=== PATIENT | female | born 1975 | race Caucasian/White ===

== ENCOUNTER → 2016-09-12 | Day surgery (SDC) | payer OTHER ==
--- NOTE | 2016-09-08 10:16 | MH ---
cc: REYNABRIAN Melissa VALDES DATE OF ADMISSION 09/12/2016 DATE OF 1975 HISTORY This female has a history of markedly constricted maxilla and mandible. Her chief complaint is difficulty with sleeping and breathing and eating. PAST MEDICAL HISTORY The past medical history reveals she had a: 1. Laparotomy for a cyst removal six years ago 2. Tonsillectomy age 24 3. She had a uterine ablation for bleeding. All without difficulty. PAST MEDICAL HISTORY Reveals she has: 1. Hypothyroidism 2. Sleep difficulty 3. She also has a history of seizures on two occasions. 4. She has normal growth and development. 5. She had scarlet fever at age 12. MEDICATIONS Her current medications are: 1. Synthroid 2. Klonopin FAMILY HISTORY History of Alzheimer's and lung cancer. 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 She does not use tobacco. She only uses alcohol occasionally. She has a great deal of difficulty with sleep. REVIEW OF SYSTEMS She has no headaches or dizziness. She did have an injury in 2011. She subsequently had two seizures afterwards the latest being in 2012. EYES: Has no history of double vision, tearing or blind spots. NOSE: She has marked obstruction with a deviated septum and enlarged turbinates. She does not have any discharge or bleeding history. MOUTH: Markedly constricted maxilla of the nasal maxillary complex with compromised airway. THROAT: No history of hoarseness, soreness, thyroid disease, lymph nodes or local general glandular enlargement. RESPIRATORY: No history of tuberculosis, cough, asthma, COPD. She reports shortness of breath when lying flat and she has questionable history of sleep apnea. CARDIOVASCULAR: No history of precordial pain, hypertension, hypotension, heart murmurs, shortness of breath on exertion, edema, phlebitis, rheumatic fever or previous heart surgery. GASTROINTESTINAL: No history of gallbladder disease, peptic ulcer disease. GENITOURINARY: No history of urinary tract infections, kidney disease or venereal disease. MUSCULOSKELETAL: She has pain and limitation of movement in her left knee. No other muscle weakness. ENDOCRINE: Has a history of thyroid disease, hypothyroidism, no history of diabetes or growth abnormality. HEMATOLOGIC: No history of anemia, bleeding tendencies, Rh incompatibility or previous transfusions. NEUROLOGIC: She has a history of seizures, the latest being in 2012. MENSTRUAL: She reports she is not at this time. She had an ablation to help control menstrual bleeding. PHYSICAL EXAM Physical examination reveals an alert, oriented female. VITAL SIGNS: Her pulse is 78 and regular, blood pressure 128/76, O2 sat on room air is 99%. She is 5 foot, 6 inches, she weighs 162. HEAD, EYES, EARS, NOSE, AND THROAT: Head is normocephalic. There are no masses noted. Eyes: EOMs intact. PERRLA. Ears: TMs intact. Nose: She has a markedly deviated septum to the left with enlarged turbinates on the left and a markedly constricted nasomaxillary complex. Her mandible is also constricted with compensated lingually inclined dentition. Her throat is clear. NECK: She has no thyroid enlargement. CHEST: Clear to auscultation. HEART: Regular sinus rhythm without thrill, murmur or gallop. Peripheral pulses full and equal throughout. ABDOMEN: Soft, there are no masses or organomegaly present. NEUROLOGIC: Cranial nerves II-XII intact. Deep tendon reflexes symmetric and physiologic. PLAN The patient is admitted at this time for a rapid surgical expansion of her maxilla. She has been informed of the treatment planning. She accepts the treatment plan. KEISHA Prater /9:54 AM /10:05 AM
[~2016-09-12] VITALS: Ht 167.6 cm; Wt 75.5 kg
[~2016-09-12] MED LIST: *morphine SULFATE 8 MG/ML PERIprocedure ONLY ONE; ACETAMINOPHEN 1000 MG/100 ML VIAL IV ONE; APREPITANT 40 MG CAP ONE; BACITRACIN TOP OINT 15 GM TUBE ONE; CHLORHEXIDINE GLUCONATE 2 % 1 PACK (2 CLOTHS) TOPICAL PRN; CLON2TAB PO; DO NOT ADM ANY ANTICOAGULANT DRUGS PRN; FAMOTIDINE 20 MG/2 ML VIAL ONE; INSULIN HUMAN REGULAR 1,000 UNITS/10 ML VIAL SQ PRN; KETOROLAC TROMETHAMINE 60 MG/2 ML (IM) VIAL IM ONE; LACTATED RINGER'S 1000 ML IV PRN; LIDOCAINE 1%/EPINEPHrine 1:100,000 SOLN 20 ML VIAL ONE; METOPROLOL TARTRATE 25 MG TAB PO PRN; MICROFIBRILLAR COLLAGEN HEMOSTAT 1 GM PKT ONE; MIDAZOLAM HCL 2 MG/2 ML VIAL ONE; NEOSTIGMINE 3 MG/3 ML SYR IV ONE; ONDANSETRON HCL 4 MG/2 ML VIAL IV PUSH ONE; POVIDONE IODINE 5% (ANTISEPSIS KIT) 4 APPLICATIONS EACH NARE PRN; PROPOFOL 200 MG/20 ML AMP IV ONE; SCOPOLAMINE 1.5 MG PATCH ONE; SODIUM CHLORID 0.9% 500 ML IV PRN; SYNT88TA PO; THROMBIN (TOPICAL) 5,000 UNIT VIAL ONE; ceFAZolin 1,000 MG/NS 100 ML IV SCH; fentaNYL CITRATE 250 MCG/5 ML AMP ONE
[2016-09-12 11:28] VITALS: BP 105/68; PULSE 55; RESP 18; TEMP 97.7; O2SAT 99
[2016-09-12 16:00] VITALS: BP 122/74; PULSE 48; RESP 18; TEMP 98.2; O2SAT 96
--- NOTE | 2016-09-14 09:20 | MP ---
cc: BRIAN ORELLANA DDS DATE OF SURGERY 09/12/2016 PREOPERATIVE DIAGNOSIS Constricted maxilla OPERATIVE PROCEDURE Performed rapid surgical expansion of the maxilla. OPERATIVE PROCEDURE The patient was brought to the operating room, placed on the operating table in the supine position. The patient was anesthetized and intubated via the nasal route. The patient was prepped and draped in usual manner for an intraoral procedure. 6 cc of 2% Xylocaine with 1:100,000 epinephrine was infiltrated in the buccal vestibule of the maxilla and on the palatal side of the maxilla. Once this was completed, a full-thickness mucoperiosteal incision was made from first molar to first molar. This incision was made 5 mm superior to the mucogingival junction. The flap was reflected. A short incision was made between teeth #8 and 9. Once this was completed, a reciprocating saw was used to section the lateral wall of the maxilla bilaterally. The pterygoid chisel was used to separate the pterygoid plates. A cortical bone cut was made with a 701 bur between 8 and 9 and then a chisel was used to finish the cut. Once this was completed, the mail carriers supervisor was activated 10 times. There was a noticeable gap between teeth #8 and 9 and obvious movement of the lateral gonzales of the maxilla. Once this was completed, PRP was injected in all surgical sites. The incisions were closed with interrupted and running 4-0 chromic sutures. The throat pack was removed and the patient was taken to recovery in good condition. KEISHA Prater /2:57 PM /9:15 AM
== END | disposition home or self-care (01) ==
LOC: HSDC 10:37
PROVIDERS: ATTEND Dentist Oral and Maxillofacial Surgery
DX: M26.02 Maxillary hypoplasia (principal); E03.9 Hypothyroidism, unspecified
CPT/HCPCS: 00192; 21142; J0131; J0690; J1885; J2250; J2270; J2405; J2710; J3010; J7120; J8501

== ENCOUNTER 2017-10-23 08:12 | Inpatient (IN) ==
--- NOTE | 2017-10-11 23:06 | MH ---
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 She is admitted at this time for correction of the above-mentioned problems. PAST MEDICAL HISTORY: Reveals that she had a laparotomy removed 6 years ago for a cyst. She had a tonsillectomy at age 24. She had a uterine ablation for bleeding, all without difficulty. She had a rapid surgical expansion of her maxilla 09/12/2016 at [facility]. Other past medical history reveals that she has hypothyroidism, sleep difficulty, she has had a history of seizures on 2 occasions in the past, she has had normal growth and development and she had scarlet fever at age 12. CURRENT MEDICATIONS: 1. Synthroid. 2. Klonopin. FAMILY HISTORY: She has a family history of Alzheimer's and lung cancer. 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 She does not use tobacco. She only uses alcohol occasionally. She reports she has a great deal of difficulty with sleep. REVIEW OF SYSTEMS: HEAD: No history of headaches or dizziness. She did have an injury in 2011. She has had subsequent seizures on 2 occasions, the latest being in 2012. EYES: No history of double vision, tearing or blind spots. NOSE: Prior to the previous maxillary surgery, she had a marked deviation of her septum, which has now been corrected. She does not have any history of bleeding or discharge from the nose. MOUTH: She has the asymmetry as noted in above. THROAT: No history of hoarseness, soreness thyroid disease or general glandular enlargement. RESPIRATORY: No history of tuberculosis, cough, asthma, COPD. She reports she does have shortness of breath when lying flat and she has a questionable history of sleep apnea. CARDIOVASCULAR: No history of hypertension, hypotension, chest pain, heart murmurs, shortness of breath on exertion when lying flat. She has no history of edema, phlebitis, rheumatic fever or previous heart surgery. GASTROINTESTINAL: No history of gallbladder disease or peptic ulcer disease. GENITOURINARY: No history of urinary tract infections, kidney disease or Venereal disease. MUSCULOSKELETAL: She has pain and limitation of movement in her left knee. No other muscle weakness. ENDOCRINE: She has a history of thyroid disease, hypothyroidism. No history of diabetes or growth abnormality. HEMATOLOGIC: No history of anemia, bleeding tendencies, RH incompatibility or previous transfusions. She has had no difficulty with bleeding on previous surgeries. NEUROLOGIC: Has a history of seizures, the latest being in 2012. She reports that she is not at this time. She had an ablation to help control menstrual bleeding. PHYSICAL EXAMINATION: Reveals an alert and oriented female. VITAL SIGNS: Her blood pressure is 115/66, her pulse is 59 and regular, O2 saturation on room air is 98%. Her weight is 168 pounds. She is 5 feet 6 inches. HEENT: Head is normocephalic. There are no masses noted. Eyes, EOMs intact. PERRLA. TMs intact. The deviation to her septum has been corrected. She does have enlarged turbinates on the left. Her mandible is constricted and is asymmetric being longer on the left than the right. Her throat is clear. NECK: There is no thyroid enlargement. CHEST: Clear to auscultation. HEART: Regular sinus rhythm without thrill, murmur or gallop. EXTREMITIES: Peripheral pulses full and equal. ABDOMEN: Soft. There are no masses or organomegaly present. NEUROLOGIC: Cranial nerves 2-12 intact. Deep tendon reflexes are symmetric and physiologic. The patient has been informed of plan for a [place] I maxillary osteotomy and an intraoral vertical oblique osteotomy of the mandible for correction of her asymmetry. She accepts treatment plan. KEISHA Prater/HAMMAD , 07:22 AM , 07:45 AM
[~2017-10-23 08:12] MED LIST changes: -*morphine SULFATE 8 MG/ML PERIprocedure ONLY ONE; -ACETAMINOPHEN 1000 MG/100 ML VIAL IV ONE; -APREPITANT 40 MG CAP ONE; -BACITRACIN TOP OINT 15 GM TUBE ONE; -CHLORHEXIDINE GLUCONATE 2 % 1 PACK (2 CLOTHS) TOPICAL PRN; -CLON2TAB PO; -DO NOT ADM ANY ANTICOAGULANT DRUGS PRN; +Dexmedetomidine Inj 200 MCG/2 ML Vial ONE; -FAMOTIDINE 20 MG/2 ML VIAL ONE; -INSULIN HUMAN REGULAR 1,000 UNITS/10 ML VIAL SQ PRN; -KETOROLAC TROMETHAMINE 60 MG/2 ML (IM) VIAL IM ONE; -LACTATED RINGER'S 1000 ML IV PRN; -LIDOCAINE 1%/EPINEPHrine 1:100,000 SOLN 20 ML VIAL ONE; -METOPROLOL TARTRATE 25 MG TAB PO PRN; -MICROFIBRILLAR COLLAGEN HEMOSTAT 1 GM PKT ONE; -MIDAZOLAM HCL 2 MG/2 ML VIAL ONE; -NEOSTIGMINE 3 MG/3 ML SYR IV ONE; -ONDANSETRON HCL 4 MG/2 ML VIAL IV PUSH ONE; -POVIDONE IODINE 5% (ANTISEPSIS KIT) 4 APPLICATIONS EACH NARE PRN; -PROPOFOL 200 MG/20 ML AMP IV ONE; -SCOPOLAMINE 1.5 MG PATCH ONE; -SODIUM CHLORID 0.9% 500 ML IV PRN; -SYNT88TA PO; +Sugammadex Inj 200 MG/2 ML Vial IV.PUSH ONE; -THROMBIN (TOPICAL) 5,000 UNIT VIAL ONE; -ceFAZolin 1,000 MG/NS 100 ML IV SCH; -fentaNYL CITRATE 250 MCG/5 ML AMP ONE
[2017-10-23] MEDS ORDERED: ceFAZolin 2 GM Premix Inj 2 GM/100 ML BAG IV.SIG ONE (08:53)
[2017-10-23] MEDS ORDERED: Metoprolol Tartrate 25 MG Tablet PO SCH (09:00)
[2017-10-23] MEDS ORDERED: ceFAZolin Inj 2,000 MG in Sodium Chlor 0.9% Inj 100 ML IV.SIG SCH (09:00)
[2017-10-23] MEDS ORDERED: Sodium Chlor 0.9% Inj 500 ML IV.SIG SCH (09:00)
[2017-10-23] MEDS ORDERED: Chlorhexidine Gluconate 2% 1 Pack (2 Cloths) TOPICAL SCH (09:00)
[2017-10-23] MEDS ORDERED: fentaNYL Citrate Inj 250 MCG/5 ML Ampul ONE (09:30)
[2017-10-23 09:48] LABS: Baso % (Auto) 0.1 % (0.0-2.0); Eos # (Auto) 0.3 th/mm3 (0.0-0.4); Eos % (Auto) 2.2 % (0.0-4.0); Hematocrit 38.5 % (35.0-46.0); Lymph # (Auto) 1.2 th/mm3 (1.0-4.8); Lymph % (Auto) 9.8 % (9.0-44.0); Mean Corpuscular HGB Conc 33.9 % (32.0-36.0); Mean Corpuscular Hemoglobin 32.7 pg (27.0-34.0); Mean Corpuscular Volume 96.7 fL (80.0-100.0); Mean Platelet Volume 9.6 fL (7.0-11.0); Mono # (Auto) 0.7 th/mm3 (0.0-0.9); Mono % (Auto) 6.3 % (0.0-8.0); Neut # (Auto) 9.6 th/mm3 (1.8-7.7); Neut % (Auto) 81.6 % (16.0-70.0); Platelet Count 200 th/mm3 (150-450); Red Blood Count 3.98 mil/mm3 (4.00-5.30); Red Cell Distribution Width 12.5 % (11.6-17.2); White Blood Count 11.8 th/mm3 (4.0-11.0)
[2017-10-23] MEDS ORDERED: Lidocaine 1%/Epinephrine 1:100,000 Inj 20 ML Vial ONE (10:35)
[2017-10-23] MEDS ORDERED: Thrombin Topical Soln 5,000 UNIT Vial TOPICAL ONE (10:35)
[2017-10-23] MEDS ORDERED: Chlorhexidine Gluconate 0.12% Liq 15 ML UDC ONE ×2 (10:52→10:59)
[2017-10-23] MEDS ORDERED: Microfibrillar Collagen Hemostat 1 GM Packet TOPICAL ONE (10:59)
[2017-10-23] MEDS ORDERED: Sodium Chlor 0.9% Inj 250 ML IV.SIG ONE (12:00)
[2017-10-23] MEDS ORDERED: Sodium Chlor 0.9% Inj 500 ML IV.SIG ONE (12:00)
[2017-10-23] MEDS ORDERED: Metoprolol Inj 5 MG/5 ML Vial IV.PUSH ONE (12:00)
[2017-10-23] MEDS ORDERED: Lidocaine PF 1% Inj 5 ML Syringe INFILTRATN ONE (12:00)
[2017-10-23] MEDS ORDERED: fentaNYL Citrate Inj 100 MCG/2 ML Ampul ONE ×2 (12:29)
[2017-10-23] MEDS ORDERED: Propofol Inj 500 MG/50 ML Vial ONE (12:30)
[2017-10-23 13:46] LABS: Hematocrit 33.3 % (35.0-46.0); Hemoglobin 11.3 gm/dL (11.6-15.3)
[2017-10-23 13:48] LABS: ABG Base Excess -2.1 mmol/L (-2-2); ABG PCO2 37 mmHg (38-42); ABG PO2 253 mmHG (61-120)
[2017-10-23] MEDS ORDERED: Balanced Salt Opth Irrigation 15 APPLIC/15 ML Bottle ONE (14:55)
--- NOTE | 2017-10-23 15:20 | MP ---
cc: Roberto No DDS DATE OF OPERATION: 10/23/2017 PREOPERATIVE DIAGNOSIS: Asymmetry of the maxillofacial region. OPERATIVE PROCEDURE: Le [place] I maxillary osteotomy, vertical intraoral oblique osteotomy of the mandible, nasal maxillary osteotomy, PRP. OPERATIVE PROCEDURE: The patient was brought to the operating room, placed on the operating table in supine position. The patient was anesthetized intravenously and intubated with ease via the nasal route. Following this, the patient was prepped and draped in the usual manner for an intraoral procedure. A Latif catheter and NG tube was placed. The maxilla was anesthetized with 1% lidocaine with 1:100,000 epinephrine. Once this was completed, a full-thickness mucoperiosteal incision was made in the maxilla from first molar to first molar, 5 mm superior to the mucogingival junction. The mucoperiosteal flap was reflected. An osteotomy site was outlined and the prescribed amount of bone was removed from the lateral wall of the left maxilla. An identical procedure was carried out on the right hand side. The amount of bone was greater on the left than the right by approximately 3 mm. Once this was completed, the medial wall of the maxilla was resected with chisels. The nasal zygomaticomaxillary complex was with a nasal maxillary osteotome. The pterygoid plates were with a pterygoid chisel. The patient's maxilla was then down-fractured. All interferences were removed. The descending palatine artery was ligated on both sides with a Hemoclip. Attention was directed to the nasal mucosa. A full-thickness mucoperiosteal incision was made over the nasal mucosa over the nasal septal cartilage. The flap was reflected. Approximately 10 mm of nasal septal cartilage was removed. The nasal mucosa was sutured with running 3- chromic sutures. Once this was completed, the patient was placed in a prefabricated interim splint; it was noted to be in the correct position. The maxilla then was secured with four 4-hole KLS 2.0 plates. Once this was completed, attention was directed to the mandible. Once again Xylocaine 1% with 1:100,000 epinephrine was infiltrated in the area of the ramus of the mandible bilaterally. A full-thickness mucoperiosteal incision was made with an electrical cutting knife in the area of the ramus lateral to the mandible. The flap was reflected. Hunter retractors were placed in the sigmoid notch and at the inferior border at the angle. Once this was completed, an oscillating saw was used to section the mandible from the sigmoid notch down to the angle of the mandible. This was completed, bilaterally. Once this was completed, any muscle attached to the fragment was removed with a periosteal elevator and the patient was then placed a prefabricated final splint. Once this was completed, a nasal cinch was carried out with 3-0 Vicryl suture through a hole placed in the anterior nasal spine area. Once the nasal cinch was completed, a V-Y closure was carried out in the anterior portion of the horizontal incision and then a running horizontal mattress suture was carried out with 4-0 chromic sutures. Attention was directed to the mandible. The mandibular incision was closed with a running 4-0 chromic suture bilaterally. PRP was placed in a surgical area prior to all of the closures. The throat pack was removed and the patient was taken to the recovery room in good condition. KEISHA Prater , 02:48 PM , 02:58 PM
[2017-10-23] MEDS ORDERED: Morphine Inj 4 MG/ML Vial ONE (15:35)
[2017-10-23] MEDS ORDERED: Post-op Orders (for Pharmacy) OTHER ONE (15:38)
[2017-10-23] MEDS ORDERED: Ketorolac Inj 30 MG/ML (IVP) Vial IV.PUSH PRN (15:38)
[2017-10-23] MEDS ORDERED: Naloxone Inj 0.4 MG/ML Vial IV.PUSH PRN (15:38)
[2017-10-23] MEDS ORDERED: KCL 20 mEq/D5W/NaCl 0.45% Inj 1,000 ML ONE (16:03)
[2017-10-23] MEDS ORDERED: Pantoprazole Inj 40 MG Vial IV.PUSH SCH (18:00)
[2017-10-23] MEDS ORDERED: PSEUDOEPHEDRINE HCL PO SCH (18:00)
[2017-10-23] MEDS: MethylPREDNISolone Sod Succinate Inj 125 MG/2 ML Vial IV.PUSH SCH (18:44)
[2017-10-23] MEDS: KCL 20 mEq/D5W/NaCl 0.45% Inj 1,000 ML IV.CONT SCH (18:45)
[2017-10-23] MEDS: Acetaminophen-HYDROcodone 325/7.5 Liq 15 ML UDC NG/OG PRN (19:35)
[2017-10-23] MEDS: ceFAZolin Inj 1,000 MG in Sodium Chlor 0.9% Inj 100 ML IV.SIG SCH (21:16)
[2017-10-23 23:21] LABS: Bilirubin,Urine Negative (Negative); Clarity,Urine Clear (Clear); Color,Urine Yellow (Yellw/Straw); Glucose,Urine (UA) 500 or Greater mg/dL (Negative); Leukocyte Esterase,Urine Negative (Negative); Nitrite,Urine Negative (Negative); Specific Gravity,Urine 1.018 (1.002-1.035); Squamous Epithelial Cell,Urine <1 /hpf (0-5)
[2017-10-24] MEDS: MethylPREDNISolone Sod Succinate Inj 125 MG/2 ML Vial IV.PUSH SCH ×5 (01:12→14:46)
[2017-10-24] MEDS: Acetaminophen-HYDROcodone 325/7.5 Liq 15 ML UDC NG/OG PRN ×3 (01:13→19:43)
[2017-10-24] MEDS: ceFAZolin Inj 1,000 MG in Sodium Chlor 0.9% Inj 100 ML IV.SIG SCH ×3 (02:50→17:36)
[2017-10-24 05:08] LABS: Baso % (Auto) 0.1 % (0.0-2.0); Hematocrit 34.7 % (35.0-46.0); Hemoglobin 11.5 gm/dL (11.6-15.3); Lymph # (Auto) 0.5 th/mm3 (1.0-4.8); Lymph % (Auto) 2.6 % (9.0-44.0); Mean Corpuscular Hemoglobin 32.7 pg (27.0-34.0); Mean Corpuscular Volume 99.2 fL (80.0-100.0); Mean Platelet Volume 9.9 fL (7.0-11.0); Mono # (Auto) 0.4 th/mm3 (0.0-0.9); Mono % (Auto) 2.1 % (0.0-8.0); Neut # (Auto) 17.8 th/mm3 (1.8-7.7); Neut % (Auto) 95.2 % (16.0-70.0); Platelet Count 169 th/mm3 (150-450); Red Cell Distribution Width 12.4 % (11.6-17.2); White Blood Count 18.7 th/mm3 (4.0-11.0)
[2017-10-24 05:34] LABS: Calcium 8.4 mg/dL (8.5-10.1); Carbon Dioxide 24.1 meq/L (21.0-32.0); Potassium 3.9 meq/L (3.5-5.1)
[2017-10-24] MEDS ORDERED: Ibuprofen 600 MG Tablet PO PRN (06:24)
[2017-10-24] MEDS: Levothyroxine 88 MCG Tablet PO SCH (06:55)
[2017-10-24] MEDS: KCL 20 mEq/D5W/NaCl 0.45% Inj 1,000 ML IV.CONT SCH (06:55)
--- NOTE | 2017-10-24 08:08 | P.PN ---
Subjective Interval history: 42 y/o F with a history of hypothyroidism now post-op s/p LeFort 1 osteotomy and IVRO with MMF on 10/23/17. Did well overnight, minimal PO intake. Pain well controlled with PO pain medications. Denies any nausea. Reports some decreased sensation in her upper face, reports feeling in her lower lip. Physical Exam Vital signs: Vital Signs 10/23/17 09:15 10/23/17 15:20 10/23/17 15:45 Temperature 98.4 F 98.1 F Pulse Rate 66 76 79 Respiratory Rate 16 18 18 Blood Pressure 112/66 108/58 L 111/64 Pulse Oximetry 99 94 L 96 10/23/17 16:00 10/23/17 16:15 10/23/17 16:30 Temperature Pulse Rate 71 67 72 Respiratory Rate 18 18 18 Blood Pressure 106/60 103/59 L 109/64 Pulse Oximetry 95 95 95 10/23/17 17:40 10/23/17 17:54 10/23/17 20:00 Temperature 97.9 F 99.3 F 100.0 F H Pulse Rate 77 77 88 Respiratory Rate 18 14 26 H Blood Pressure 101/62 125/67 108/66 Pulse Oximetry 96 97 10/23/17 21:17 10/24/17 00:00 10/24/17 02:49 Temperature 99.8 F H Pulse Rate 77 Respiratory Rate 21 16 22 Blood Pressure 99/56 L Pulse Oximetry 98 10/24/17 04:00 Temperature 98.6 F Pulse Rate 69 Respiratory Rate 22 Blood Pressure 99/56 L Pulse Oximetry 96 Intake & Output 10/23/17 10/24/17 10/24/17 18:59 06:59 18:59 Intake Total 4220 / 4220 4100 / 4100 Output Total 1175 / 1175 675 / 675 Balance 3045 / 3045 3425 / 3425 Weight 77 kg 77 kg Intake: IV 1220 / 1220 1100 / 1100 D5W/1/2NS + KCL 20 mEq Inj 1, 1000 / 1000 000 ML @ 40 mls/hr IV.CONT . Q24H [facility] Rx#:[id number] LR 1000 mL Inj 1,000 ML @ 30 1000 / 1000 mls/hr IV.SIG .Q24H [facility] Rx#: [id number] Ancef 2 GM Premix Inj 2 gm In 100 / 100 100 ml @ 0 mls/hr IV.SIG .[facility] Rx#:[id number] Ancef Inj 1,000 MG In NS Inj 100 / 100 100 ML @ 200 mls/hr IV.SIG Q8H [facility] Rx#:[id number] Ancef Inj 2,000 MG In NS Inj 120 / 120 100 ML @ 240 mls/hr IV.SIG [employer] [facility] Rx#:[id number] Anesthesia Amount 3000 / 3000 3000 / 3000 Output: Estimated Blood Loss 400 / 400 400 / 400 Urine Amount (Catheter) 775 / 775 275 / 275 Indwelling Urethral Catheter 775 / 775 275 / 275 Other: Weight On Admission 76.9 kg Narrative: General: Appropriate, comfortable and in no apparent distress. Neurological: Diminished sensation in CNV2 region bilaterally. CNV3 intact bilaterally. HEENT: Head/Face: Normocephalic. Moderate facial swelling bilaterally in the mandibular and malar regions without tenderness to palpation. Edema of the upper and lower lips. NG tube in place. Eyes/Orbits: PERRL. EOMI Oral Cavity/Oropharynx: Oral incisions clean and hemostatic. Sutures intact. Gingiva pink and well perfused. Moist mucous membranes. MMF and splint in place. Cardiovascular: Regular rate Pulmonary: Normal work of breathing on RA. Abdomen: Soft, non-tender. Espinoza catheter in place. Extremities: Warm, well perfused. - Urinary Catheter Management Indwelling Urethral Catheter Cath placed during this visit: yes Reason for continuing: Hourly intake/output Insertion date: 10/23/17 Insertion time: 10:28 Results - Labs CBC & Chem 7: 10/24/17 04:38 10/24/17 04:38 Laboratory Results - last 24 hr 10/23/17 10/23/17 10/23/17 09:10 09:10 13:30 WBC 11.8 H RBC 3.98 L Hgb 13.0 11.3 L Hct 38.5 33.3 L MCV 96.7 MCH 32.7 MCHC 33.9 RDW 12.5 Plt Count 200 MPV 9.6 Neut % (Auto) 81.6 H Lymph % (Auto) 9.8 Vilas % (Auto) 6.3 Eos % (Auto) 2.2 Baso % (Auto) 0.1 Neut # (Auto) 9.6 H Lymph # (Auto) 1.2 Vilas # (Auto) 0.7 Eos # (Auto) 0.3 Baso # (Auto) 0.0 WBC Differential . Differential Comment Auto diff final Puncture Site Patient Temperature O2 Saturation ABG pH ABG pCO2 ABG pO2 ABG HCO3 ABG O2 Content ABG Base Excess ABG Methemoglobin Dario Test Hemoglobin Carboxyhemoglobin O2 Delivery Device Inspired O2 Critical Value Sodium Potassium Chloride Carbon Dioxide Anion Gap BUN Creatinine Estimated GFR Random Glucose Calcium Urine Color Urine Clarity Urine pH Ur Specific Pandora Urine Protein Urine Glucose (UA) Urine Ketones Urine Occult Blood Urine Nitrate Urine Bilirubin Urine Urobilinogen Ur Leukocyte Esterase Urine RBC Urine WBC Ur Squamous Epith Cells Blood Type O Positive Blood Type Recheck Not needed Antibody Screen Negative 10/23/17 10/23/17 10/24/17 13:30 22:20 04:38 WBC 18.7 H D RBC 3.50 L Hgb 11.5 L Hct 34.7 L MCV 99.2 MCH 32.7 MCHC 33.0 RDW 12.4 Plt Count 169 MPV 9.9 Neut % (Auto) 95.2 H Lymph % (Auto) 2.6 L Vilas % (Auto) 2.1 Eos % (Auto) 0.0 Baso % (Auto) 0.1 Neut # (Auto) 17.8 H Lymph # (Auto) 0.5 L Vilas # (Auto) 0.4 Eos # (Auto) 0.0 Baso # (Auto) 0.0 WBC Differential . Differential Comment Auto diff final Puncture Site Drawn in or Patient Temperature 98.6 O2 Saturation 96 ABG pH 7.40 ABG pCO2 37 L ABG pO2 253 H ABG HCO3 22 ABG O2 Content 15.4 ABG Base Excess -2.1 L ABG Methemoglobin 2.0 Adrio Test Present Hemoglobin 11.0 L Carboxyhemoglobin 1.0 O2 Delivery Device Or Inspired O2 57 Critical Value No Sodium Potassium Chloride Carbon Dioxide Anion Gap BUN Creatinine Estimated GFR Random Glucose Calcium Urine Color Yellow Urine Clarity Clear Urine pH 6.0 Ur Specific Pandora 1.018 Urine Protein Negative Urine Glucose (UA) 500 or greater Urine Ketones Negative Urine Occult Blood Negative Urine Nitrate Negative Urine Bilirubin Negative Urine Urobilinogen Less than 2 Ur Leukocyte Esterase Negative Urine RBC Less than 1 Urine WBC 4 Ur Squamous Epith Cells <1 Blood Type Blood Type Recheck Antibody Screen 10/24/17 04:38 WBC RBC Hgb Hct MCV MCH MCHC RDW Plt Count MPV Neut % (Auto) Lymph % (Auto) Vilas % (Auto) Eos % (Auto) Baso % (Auto) Neut # (Auto) Lymph # (Auto) Vilas # (Auto) Eos # (Auto) Baso # (Auto) WBC Differential Differential Comment Puncture Site Patient Temperature O2 Saturation ABG pH ABG pCO2 ABG pO2 ABG HCO3 ABG O2 Content ABG Base Excess ABG Methemoglobin Dario Test Hemoglobin Carboxyhemoglobin O2 Delivery Device Inspired O2 Critical Value Sodium 140 Potassium 3.9 Chloride 106 Carbon Dioxide 24.1 Anion Gap 10 BUN 8 Creatinine 0.89 Estimated GFR 69 L Random Glucose 183 H Calcium 8.4 L Urine Color Urine Clarity Urine pH Ur Specific Pandora Urine Protein Urine Glucose (UA) Urine Ketones Urine Occult Blood Urine Nitrate Urine Bilirubin Urine Urobilinogen Ur Leukocyte Esterase Urine RBC Urine WBC Ur Squamous Epith Cells Blood Type Blood Type Recheck Antibody Screen Assessment and Plan - Plan 42 y/o F with a history of hypothyroidism post-op s/p LeFort 1 osteotomy and IVRO with MMF. Doing well post-operatively but minimal PO intake Neuro: - Pain control with Hycet and ibuprofen - Benedryl prn itching Maxillofacial: - HOB elevated - Ice to face for 24 hours - Solumedrol for 24 hours - Afrin, Sudafed - Wire cutters to bedside CV/Resp: Stable FEN/GI: - Decrease IVF and mindi - Encourage PO intake - Full liquid diet /Renal: - D/C espinoza catheter - Strict I/Os Endocrine: - Restarted home Synthroid Heme/ID: - Ancef, convert to PO on discharge Prophylaxis: - SCDs - Encourage ambulation Dispo: - Floor status - On discharge patient will present to office for post-op radiographs Rafa Moore DDS,
[2017-10-24] MEDS ORDERED: diphenhydrAMINE HCl 12.5 MG/5 ML Elixir UDC PO PRN (16:43)
[2017-10-25] MEDS: ceFAZolin Inj 1,000 MG in Sodium Chlor 0.9% Inj 100 ML IV.SIG SCH (02:28)
[2017-10-25] MEDS: Levothyroxine 88 MCG Tablet PO SCH (06:33)
== END 2017-10-25 11:52 | disposition home or self-care (01) ==
LOC: HSDC 08:12 → HSDI 15:38 → N03 17:42 → N05 10-24 20:28
PROVIDERS: ADMIT Dentist Oral and Maxillofacial Surgery; ATTEND Dentist Oral and Maxillofacial Surgery